=== PATIENT | female | born 1960 | race Caucasian/White ===

== ENCOUNTER 2025-03-12 13:08 | Inpatient (IN) | payer OTHER ==
[~2025-03-12] VITALS: Ht 157.5 cm; Wt 45.4 kg
[2025-03-12 13:14] VITALS: O2SAT 98
[2025-03-12 14:18] LABS: BG BASE EXCESS -4.9 mmol/L (-2.0-3.0); BG CARBOXYHEMOGLOBIN 0.3 % (0.5-1.5); BG DEOXYHEMOGLOBIN 0.6 % (0.0-5.0); BG FRACTION INSPIRED OXYGEN 100; BG HCO3 ACT 18.9 mmol/L (21.0-28.0); BG OXYGEN SATURATION 99.4 % (94.0-98.0); BG OXYHEMOGLOBIN 99.1 % (94.0-98.0); BG PH 7.403 (7.350-7.450); BG PO2 221.4 mmHg (83.0-108.0); BG SAMPLE SITE LEFT RADIAL; BG TOTAL HEMOGLOBIN 11.2 g/dL (12.0-16.0); BG VENT MODE MASK - NRB
[2025-03-12] MEDS: SODIUM CHLORIDE 0.9% (SEPSIS BOLUS) IV ONE (14:28)
[2025-03-12] MEDS: PIPERACILLIN/TAZO 3.375G/50ML 50 ML IV ONE (14:28)
[2025-03-12] MEDS: VANCOMYCIN 1G PREMIX 200 ML IV ONE (14:50)
[2025-03-12 14:57] LABS: HEMATOCRIT. 34.3 % (36.0-48.0); HEMOGLOBIN. 11.1 g/dL (12.0-16.0); MEAN CORPUSCULAR HEMOGLOBIN 29.6 pg (28.0-32.0); MEAN CORPUSCULAR HGB CONC 32.3 g/dL (31.0-37.0); MEAN CORPUSCULAR VOLUME 91.6 fL (81.0-99.0); MEAN PLATELET VOLUME 8.6 fl (7.4-10.4); PLATELET 114 x1000/uL (130-400); RED BLOOD CELL COUNT 3.75 mill/uL (4.2-5.4); WHITE BLOOD COUNT 4.6 x1000/uL (4.5-11.0)
[2025-03-12 15:02] LABS: CHLORIDE 108 mEq/L (98-107); POTASSIUM 5.9 mEq/L (3.5-5.1); SODIUM 143 mEq/L (136-145)
[2025-03-12 15:03] LABS: CARBON DIOXIDE 22 mEq/L (21-32)
[2025-03-12 15:04] LABS: CALCIUM 12.9 mg/dL (8.7-10.4)
[2025-03-12 15:08] LABS: CREATININE 1.3 mg/dL (0.6-1.0); GLUCOSE 273 mg/dL (70-105)
[2025-03-12 15:09] LABS: TROPONIN I HIGH SENSITIVITY 30 ng/L (3.0-34); UREA NITROGEN BLOOD 52 mg/dL (9-23)
[2025-03-12 15:10] LABS: ALANINE AMINOTRANSFERASE 102 IU/L (10-49); ALBUMIN 3.3 g/dL (3.2-4.8); ASPARTATE AMINOTRANSFERASE 116 IU/L (<34); LACTATE DEHYDROGENASE > 750 IU/L (120-246)
[2025-03-12 15:11] LABS: BILIRUBIN DIRECT 0.5 mg/dL (<=3.0); BILIRUBIN TOTAL 0.8 mg/dL (0.1-1.0); PROTEIN TOTAL 5.8 g/dL (6.0-8.3)
[2025-03-12 15:14] LABS: DIFFERENTIAL COMMENT 1
[2025-03-12 15:31] LABS: LACTIC ACID 3.7 mmol/L (0.4-2.0)
[2025-03-12 15:44] LABS: ANISOCYTOSIS 2+; GIANT PLATELETS 1+; PLATELET ESTIMATE NORMAL
[2025-03-12 16:06] LABS: D-DIMER 10.16 mg/L FEU (<0.50); INR 1.2; PROTHROMBIN TIME 12.9 sec (9.6-11.0)
[2025-03-12 17:16] LABS: CHLORIDE 111 mEq/L (98-107); POTASSIUM 3.7 mEq/L (3.5-5.1); SODIUM 146 mEq/L (136-145)
[2025-03-12 17:17] LABS: CALCIUM 12.4 mg/dL (8.7-10.4); CARBON DIOXIDE 23 mEq/L (21-32)
[2025-03-12 17:22] LABS: CREATININE 0.9 mg/dL (0.6-1.0); GLUCOSE 285 mg/dL (70-105); UREA NITROGEN BLOOD 45 mg/dL (9-23)
[2025-03-12 17:23] LABS: TROPONIN I HIGH SENSITIVITY 25 ng/L (3.0-34)
[2025-03-12] MEDS ORDERED: ONDANSETRON HCL 4MG/2ML INJ IV PRN (17:30)
[2025-03-12] MEDS ORDERED: DOCUSATE SODIUM 100MG CAPSULE PO PRN (17:30)
[2025-03-12] MEDS ORDERED: IPRATROPIUM/ALBUTEROL 0.5-3(2.5)MG/3ML NEB HHN PRN (17:30)
[2025-03-12] MEDS ORDERED: MAGNESIUM/ALUMINUM HYDROXIDE/SIMETHICONE 30ML UDC PO PRN (17:30)
[2025-03-12] MEDS ORDERED: ACETAMINOPHEN 325MG TABLET PO PRN ×2 (17:30)
[2025-03-12] MEDS ORDERED: GUAIFENESIN 200MG/10ML SUGAR FREE UDC PO PRN (17:30)
[2025-03-12] MEDS: AZITHROMYCIN 500MG/250ML 250 ML IV SCH (18:40)
[2025-03-12 18:42] VITALS: RESP 41
[2025-03-12] MEDS: IPRATROPIUM/ALBUTEROL 0.5-3(2.5)MG/3ML NEB HHN SCH (18:42)
[2025-03-12] MEDS: ENOXAPARIN 40MG/0.4ML SYR SUBCUT SCH (18:48)
[2025-03-12] MEDS ORDERED: VANCOMYCIN 500MG PREMIX 100 ML IV NR (20:00)
[2025-03-12 20:04] VITALS: RESP 44
[2025-03-12 21:53] VITALS: RESP 48
[2025-03-12 22:00] VITALS: BP 106/74; PULSE 146; RESP 52; TEMP 36.7
[2025-03-12] MEDS: PIPERACILLIN/TAZO 3.375G/50ML 50 ML IV SCH (22:00)
[2025-03-12 22:30] VITALS: PULSE 132; RESP 29; RESP 49; TEMP 36.7; O2SAT 92
[2025-03-12] MEDS ORDERED: IOHEXOL-350 100 ML BOTTLE ONE (23:29)
[2025-03-13] VITALS (41 sets, daily range): BP systolic 85–154; BP diastolic 45–74; PULSE 95–151; RESP 18–56; TEMP 36.4–37.2; O2SAT 75–99
[2025-03-13] MEDS: METOPROLOL TARTRATE 5MG/5ML VIAL IV NR (02:44)
[2025-03-13] MEDS: MORPHINE SULFATE 2 MG/ML INJ (NOT FOR IM USE) IV PRN ×2 (04:56→22:17)
[2025-03-13] MEDS ORDERED: NALOXONE HCL 0.4MG/ML VIAL IV PRN (05:00)
[2025-03-13] MEDS: CLONIDINE 0.1MG TABLET PO PRN (05:35)
[2025-03-13] MEDS: ACETAMINOPHEN 1000MG/100ML 100 ML IV NR (05:57)
[2025-03-13] MEDS: SODIUM CHLORIDE 0.9% 500 ML IV ONE ×2 (07:01→09:12)
[2025-03-13] MEDS: METOPROLOL TARTRATE 5MG/5ML VIAL IV PRN (07:23)
[2025-03-13] MEDS ORDERED: LIDOCAINE HCL/PF 1% 2ML VIAL ONE (08:00)
[2025-03-13] MEDS ORDERED: DEXTROSE 50% WATER 50ML SYRINGE IV PRN ×2 (10:15→14:15)
[2025-03-13] MEDS: VANCOMYCIN 500MG PREMIX 100 ML IV SCH (10:47)
[2025-03-13] MEDS: SODIUM CHLORIDE 0.45% 1,000 ML IV ONE (10:48)
[2025-03-13 10:50] LABS: BG BASE EXCESS -3.9 mmol/L (-2.0-3.0); BG CARBOXYHEMOGLOBIN 0.3 % (0.5-1.5); BG DEOXYHEMOGLOBIN 4.3 % (0.0-5.0); BG FRACTION INSPIRED OXYGEN 100; BG HCO3 ACT 21.5 mmol/L (21.0-28.0); BG METHEMOGLOBIN 0.3 % (0.5-1.5); BG OXYGEN SATURATION 95.7 % (94.0-98.0); BG OXYHEMOGLOBIN 95.1 % (94.0-98.0); BG PCO2 40.3 mmHg (32.0-45.0); BG PH 7.345 (7.350-7.450); BG PO2 86.2 mmHg (83.0-108.0); BG SAMPLE SITE LEFT RADIAL; BG TOTAL HEMOGLOBIN 10.3 g/dL (12.0-16.0); BG TOTAL RESPIRATORY RATE 51 b/min; BG VENT MODE MASK - BIPAP
[2025-03-13] MEDS: INSULIN LISPRO 100 UNITS/ML SUBCUT SCH ×2 (12:31→17:00)
[2025-03-13] MEDS: BLOOD SUGAR DIAGNOSTIC STRIP TEST SCH ×2 (12:34→16:30)
[2025-03-13 12:45] LABS: IRON 14 ug/dL (50-170)
[2025-03-13 12:48] LABS: AMMONIA < 17 uMol/L (<32); TOTAL IRON BINDING CAPACITY 472 ug/dl (250-425)
[2025-03-13] MEDS: ALBUMIN HUMAN 25GM/100ML (25%) IV NR (12:48)
[2025-03-13 12:50] LABS: FOLIC ACID (FOLATE) SERUM 10.84 ng/mL (>5.38)
[2025-03-13] MEDS: MIDODRINE HCL 5MG TABLET PO SCH (12:50)
[2025-03-13 14:01] LABS: FERRITIN 2371 ng/mL (10-291); VITAMIN B12 SERUM 3402 pg/mL (211-911)
[2025-03-13] MEDS ORDERED: VANCOMYCIN 1.25GM/250ML IV SCH (15:00)
[2025-03-13 15:12] LABS: HEMATOCRIT. 27.5 % (36.0-48.0); HEMOGLOBIN. 8.8 g/dL (12.0-16.0); MEAN CORPUSCULAR HEMOGLOBIN 29.7 pg (28.0-32.0); MEAN CORPUSCULAR HGB CONC 32.2 g/dL (31.0-37.0); MEAN CORPUSCULAR VOLUME 92.4 fL (81.0-99.0); MEAN PLATELET VOLUME 8.7 fl (7.4-10.4); PLATELET 63 x1000/uL (130-400); RED BLOOD CELL COUNT 2.97 mill/uL (4.2-5.4); RED CELL DISTRIBUTION WIDTH 19.1 % (11.6-14.6); WHITE BLOOD COUNT 2.7 x1000/uL (4.5-11.0)
[2025-03-13 15:14] LABS: CHLORIDE 116 mEq/L (98-107); POTASSIUM 3.3 mEq/L (3.5-5.1); SODIUM 153 mEq/L (136-145)
[2025-03-13 15:15] LABS: CARBON DIOXIDE 25 mEq/L (21-32)
[2025-03-13 15:20] LABS: CREATININE 0.7 mg/dL (0.6-1.0); GLUCOSE 182 mg/dL (70-105); UREA NITROGEN BLOOD 46 mg/dL (9-23)
[2025-03-13 15:26] LABS: DIFFERENTIAL COMMENT 1
[2025-03-13 15:27] LABS: CALCIUM 13.4 mg/dL (8.7-10.4)
[2025-03-13 16:40] LABS: INFLUENZA TYPE A Presumptive Negative (Pres. Neg.); INFLUENZA TYPE B Presumptive Negative (Pres. Neg.)
[2025-03-13 16:41] LABS: RESPIRATORY SYNCYTIAL VIRUS Not Detected (Not Detectd)
[2025-03-13 16:43] LABS: PLATELET ESTIMATE DECREASED
[2025-03-13 16:44] LABS: ANISOCYTOSIS 2+; HYPOCHROMASIA 1+
[2025-03-13] MEDS: PAMIDRONATE DISODIUM 60 MG in SODIUM CHLORIDE 0.9% 1,000 ML IV NR (17:10)
[2025-03-13] MEDS ORDERED: AZITHROMYCIN 500MG/250ML 250 ML IV SCH (18:00)
[2025-03-13] MEDS ORDERED: BLOOD SUGAR DIAGNOSTIC STRIP TEST SCH (18:00)
[2025-03-13] MEDS ORDERED: ENOXAPARIN 40MG/0.4ML SYR SUBCUT SCH (20:00)
[2025-03-13] MEDS: AZITHROMYCIN 500MG/250ML 250 ML IV SCH (20:06)
[2025-03-13] MEDS: HYDROCORTISONE SOD SUCCINATE 100 MG/2 ML VIAL IV SCH (22:58)
[2025-03-14] VITALS (103 sets, daily range): BP systolic 63–123; BP diastolic 27–70; PULSE 89–147; RESP 8–52; TEMP 36.4–37.5; O2SAT 70–87
[2025-03-14] MEDS: NOREPINEPHRINE 8MG/250ML PMX 250 ML IV PRN (04:03)
[2025-03-14 05:57] LABS: HEMATOCRIT. 31.9 % (36.0-48.0); HEMOGLOBIN. 9.8 g/dL (12.0-16.0); MEAN CORPUSCULAR HGB CONC 30.6 g/dL (31.0-37.0); MEAN CORPUSCULAR VOLUME 94.5 fL (81.0-99.0); PLATELET 59 x1000/uL (130-400); RED BLOOD CELL COUNT 3.38 mill/uL (4.2-5.4); RED CELL DISTRIBUTION WIDTH 19.2 % (11.6-14.6)
[2025-03-14 06:08] LABS: DIFFERENTIAL COMMENT 1
[2025-03-14 06:16] LABS: CARBON DIOXIDE 24 mEq/L (21-32); CHLORIDE 116 mEq/L (98-107); POTASSIUM 3.5 mEq/L (3.5-5.1); SODIUM 155 mEq/L (136-145)
[2025-03-14 06:20] LABS: UREA NITROGEN BLOOD 35 mg/dL (9-23)
[2025-03-14 06:21] LABS: CREATININE 0.5 mg/dL (0.6-1.0); GLUCOSE 117 mg/dL (70-105)
[2025-03-14 06:22] LABS: ALANINE AMINOTRANSFERASE 49 IU/L (10-49); ALBUMIN 3.3 g/dL (3.2-4.8); ASPARTATE AMINOTRANSFERASE 52 IU/L (<34)
[2025-03-14 06:23] LABS: BILIRUBIN DIRECT 0.8 mg/dL (<=3.0)
[2025-03-14 06:25] LABS: PROTEIN TOTAL 5.4 g/dL (6.0-8.3)
[2025-03-14 08:45] LABS: BG BASE EXCESS -4.6 mmol/L (-2.0-3.0); BG CARBOXYHEMOGLOBIN 0.4 % (0.5-1.5); BG DEOXYHEMOGLOBIN 22.6 % (0.0-5.0); BG FRACTION INSPIRED OXYGEN 100; BG HCO3 ACT 26.9 mmol/L (21.0-28.0); BG METHEMOGLOBIN 0.3 % (0.5-1.5); BG OXYGEN SATURATION 77.2 % (94.0-98.0); BG OXYHEMOGLOBIN 76.7 % (94.0-98.0); BG PCO2 93.3 mmHg (32.0-45.0); BG PH 7.077 (7.350-7.450); BG PO2 52.3 mmHg (83.0-108.0); BG SAMPLE SITE LEFT RADIAL; BG TOTAL HEMOGLOBIN 10.8 g/dL (12.0-16.0); BG VENT MODE MASK - BIPAP
[2025-03-14] MEDS: PANTOPRAZOLE SODIUM 40 MG/VIAL IV SCH (08:55)
[2025-03-14] MEDS: MAGNESIUM 2 G PREMIX 50 ML IV NR (08:55)
[2025-03-14] MEDS: SODIUM CHLORIDE 0.45% 500 ML IV ONE (08:56)
[2025-03-14] MEDS ORDERED: IPRATROPIUM BROMIDE (0.02%) 0.5MG/2.5ML NEB HHN PRN (09:00)
[2025-03-14] MEDS ORDERED: CALCITONIN,SALMON, 3.7 ML NASAL SPRAY ONENSTRL SCH (09:30)
[2025-03-14] MEDS: PHENYLEPHRINE 50MG/250ML PMX 250 ML IV PRN (10:12)
[2025-03-14] MEDS ORDERED: LORAZEPAM 2MG/ML UD SYRINGE IV PRN (10:30)
[2025-03-14 10:44] LABS: NUCLEATED RED BLOOD CELLS 5 /100 WBC
[2025-03-14 10:45] LABS: PLATELET ESTIMATE DECREASED; TOXIC VACUOLATION 1+
[2025-03-14] MEDS ORDERED: MORPHINE SULFATE 2 MG/ML INJ (NOT FOR IM USE) IV PRN (10:45)
[2025-03-14] MEDS ORDERED: NALOXONE HCL 0.4MG/ML VIAL IV PRN (10:45)
[2025-03-14 10:46] LABS: ANISOCYTOSIS 1+
[2025-03-14] MEDS: PAMIDRONATE DISODIUM IV NR (11:36)
[2025-03-14] MEDS: DEXTROSE 5% IV NR (11:36)
[2025-03-14] MEDS: WATER IV NR (11:36)
[2025-03-14] MEDS: VASOPRESSIN 20 UNIT in SODIUM CHLORIDE 0.9% 99 ML IV PRN (13:55)
[2025-03-14] MEDS: MIDODRINE HCL 5MG TABLET PO SCH (14:00)
[2025-03-14 16:12] LABS: POTASSIUM 4.3 mEq/L (3.5-5.1)
[2025-03-14 16:14] LABS: CALCIUM 12.8 mg/dL (8.7-10.4)
[2025-03-14 16:19] LABS: CREATININE 1.2 mg/dL (0.6-1.0)
[2025-03-14] MEDS: VANCOMYCIN 750MG PREMIX 150 ML IV SCH (21:17)
[2025-03-15] VITALS (30 sets, daily range): BP systolic 67–117; BP diastolic 31–54; PULSE 77–120; RESP 0–46; TEMP 36.6; O2SAT 22–70
[2025-03-15] MEDS: MEROPENEM 1G/100ML 100 ML IV SCH (01:16)
[2025-03-15] MEDS: DEXTROSE 5% WATER 1,000 ML IV SCH (01:55)
[2025-03-15] MEDS: DEXTROSE 50% WATER 50ML SYRINGE IV PRN (05:46)
[2025-03-15] MEDS ORDERED: MORPHINE SULFATE 250 MG in DEXT 5% WATER 225 ML IV PRN (07:15)
== END 2025-03-15 13:49 | DRG 871 ==
LOC: EDBD 13:08 → ER 13:08 → 5EST 17:05 → EDBEDREQTM 17:13 → EDBEDREQ 17:13 → EDBEDREQTM 18:36 → EDBEDREQSVC 18:36 → ENRESERV 20:46 → MICUSO 03-13 14:30
PROVIDERS: ADMIT Family Medicine Adult Medicine; ATTEND Family Medicine Adult Medicine
PROC: 5A09357 Assistance with Respiratory Ventilation, Less than 24 Consecutive Hours, Continuous Positive Airway Pressure (ICD-10-PCS; principal; 2025-03-12)
PROC: 5A1935Z Respiratory Ventilation, Less than 24 Consecutive Hours (ICD-10-PCS; 2025-03-12)
PROC: 5A09457 Assistance with Respiratory Ventilation, 24-96 Consecutive Hours, Continuous Positive Airway Pressure (ICD-10-PCS; 2025-03-13)
DX: A41.9 Sepsis, unspecified organism (principal); G92.8 Other toxic encephalopathy; J18.9 Pneumonia, unspecified organism; J96.01 Acute respiratory failure with hypoxia; R65.21 Severe sepsis with septic shock; J86.9 Pyothorax without fistula; C34.90 Malignant neoplasm of unspecified part of unspecified bronchus or lung; D61.818 Other pancytopenia; E87.0 Hyperosmolality and hypernatremia; E87.20 Acidosis, unspecified; N17.9 Acute kidney failure, unspecified; A15.0 Tuberculosis of lung; D50.9 Iron deficiency anemia, unspecified; D75.839 Thrombocytosis, unspecified; E11.22 Type 2 diabetes mellitus with diabetic chronic kidney disease; E11.65 Type 2 diabetes mellitus with hyperglycemia; E83.52 Hypercalcemia; Z66 Do not resuscitate; E87.5 Hyperkalemia; Z20.822 Contact with and (suspected) exposure to COVID-19; I12.9 Hypertensive chronic kidney disease with stage 1 through stage 4 chronic kidney disease, or unspecified chronic kidney disease; J45.909 Unspecified asthma, uncomplicated; R79.89 Other specified abnormal findings of blood chemistry; E83.42 Hypomagnesemia; E86.0 Dehydration; R74.8 Abnormal levels of other serum enzymes; R74.01 Elevation of levels of liver transaminase levels; S30.0XXA Contusion of lower back and pelvis, initial encounter; Z92.3 Personal history of irradiation; Z85.118 Personal history of other malignant neoplasm of bronchus and lung; Z92.21 Personal history of antineoplastic chemotherapy; X58.XXXA Exposure to other specified factors, initial encounter; Y93.89 Activity, other specified; Y92.89 Other specified places as the place of occurrence of the external cause; Y99.8 Other external cause status
CPT/HCPCS: 36415; 36600; 71045; 71275; 80048; 80076; 80202; 82140; 82306; 82330; 82375; 82607; 82728; 82746; 82805; 82962; 83036; 83540; 83550; 83605; 83615; 83735; 83880; 83970; 84100; 84145; 84484; 85025; 85044; 85379; 85384; 86850; 86900; 87420; 87426; 87804; 93005; 93970; 94070; 94640; 94660; 94664; 94760; 99291; 99292; J0456; J1650; J1815; J2185; J2270; J2371; J2430; J2470; J2543; J3370; J3475; J3490; J7030; J7050; J7070; P9047; Q9967; J0131